=== PATIENT | male | born 1940 | race Caucasian/White ===

== ENCOUNTER → 2017-04-21 | Outpatient (CLI) | payer OTHER, MEDICARE ==
[~2017-04-21] MED LIST: LORTAB 5 MG/5001 TA1 PO; NOHOMEMEDICATIONS; TAMSULOSIN HCL0.4 M1 PO
== END ==
LOC: RAD 14:18
DX: M79.641 Pain in right hand (principal); S63.601A Unspecified sprain of right thumb, initial encounter; X58.XXXA Exposure to other specified factors, initial encounter; Y93.89 Activity, other specified; Y92.89 Other specified places as the place of occurrence of the external cause; Y99.8 Other external cause status

== ENCOUNTER → 2018-08-18 | Outpatient (CLI) | payer OTHER, MEDICARE | LOC: ULTRA 17:18 | DX: M79.89 Other specified soft tissue disorders (principal); M79.661 Pain in right lower leg ==

== ENCOUNTER → 2019-06-02 | Outpatient (CLI) | payer OTHER, MEDICARE | LOC: SJCVC 10:57 → SJCVCIMAG 10:57 | DX: I73.9 Peripheral vascular disease, unspecified (principal) ==

== ENCOUNTER 2019-06-06 11:27 | Observation (INO) | payer OTHER, MEDICARE ==
[~2019-06-06] VITALS: Ht 180.3 cm; Wt 83.6 kg
[2019-06-06 12:07] VITALS: BP 156/86
[2019-06-06] MEDS ORDERED: LO-DOSE ASPIRIN81 M1 PO (12:18)
[2019-06-06] MEDS ORDERED: ZIAC 5-6.25 MG1 EACH PO ×2 (12:18→16:21)
[2019-06-06] MEDS ORDERED: LIVALO4 MG PO (12:19)
[2019-06-06] MEDS ORDERED: XARELTO20 MG PO (12:19)
[2019-06-06 13:03] LABS: HEMATOCRIT 46.2 % (42.0-52.0); HEMOGLOBIN 15.6 gm/dL (14.0-18.0); MCH 31.8 pg (26.0-34.0); MCHC 33.7 g/dL (28.0-37.0); MCV 94.3 fL (80.0-100.0); RBC 4.9 mil/uL (4.50-6.00); RDW 13.9 % (10.5-14.5); WBC 8.1 thou/uL (4.0-11.0)
[2019-06-06 13:13] LABS: CREATININE 1.2 mg/dL (0.7-1.3); POTASSIUM 4.2 mmol/L (3.5-5.1)
[2019-06-06] MEDS ORDERED: CRESTOR20 MG PO ×2 (16:19→16:21)
[2019-06-06] MEDS ORDERED: XARELTO15 MG PO ×2 (16:19→16:21)
[2019-06-06 16:20] VITALS: BP 143/87
[2019-06-06 16:35] VITALS: BP 151/80
[2019-06-06 16:50] VITALS: BP 145/96
[2019-06-06 17:05] VITALS: BP 142/97
[2019-06-06 18:05] VITALS: BP 139/85
--- NOTE | 2019-06-06 18:11 | NUR ---
PT CAME TO UNIT APPROX 1615 FOR OBS POST PROCEDURE. RIGHT GROIN POST CATH SITE C/D/I. NO HEMATOMA. IVF RAN PER ORDER UNTIL BEDREST ORDER COMPLETE. PT REFUSED FOOD. UP WITH STEADY GAIT AT THIS TIME. SR ON FISH BAILER. DENIES PAIN, SOA AND DIZZINESS. VSS. IV OUT, TELE BOX OFF. PT TO BE ESCORTED OUT [facility].
--- NOTE | 2019-06-06 18:13 | NUR ---
DISCHARGE INSTRUCTIONS REVIEWED ALONG WITH MESSAGE FOR NEW MED ORDERS AND FOLLOW UP APPT. PT DENIED QUESTIONS AND CONCERNS REGARDING MEDS AND F/U.
== END 2019-06-06 19:16 | disposition home or self-care (01) ==
LOC: CATH 11:27 → 2N 16:26
PROVIDERS: ADMIT Nuclear Medicine Nuclear Cardiology
DX: I73.9 Peripheral vascular disease, unspecified (principal); I70.212 Atherosclerosis of native arteries of extremities with intermittent claudication, left leg; I10 Essential (primary) hypertension; I25.10 Atherosclerotic heart disease of native coronary artery without angina pectoris

== ENCOUNTER → 2019-07-17 | Outpatient (CLI) | payer OTHER, MEDICARE ==
[~2019-07-17] MED LIST changes: +CRESTOR20 MG PO; +LIVALO4 MG PO; +LO-DOSE ASPIRIN81 M1 PO; +XARELTO15 MG PO; +XARELTO20 MG PO; +ZIAC 5-6.25 MG1 EACH PO
== END ==
LOC: SJCVCIMAG 07:22
PROVIDERS: ATTEND Internal Medicine Cardiovascular Disease
DX: I65.23 Occlusion and stenosis of bilateral carotid arteries (principal); I70.203 Unspecified atherosclerosis of native arteries of extremities, bilateral legs; E78.00 Pure hypercholesterolemia, unspecified; I10 Essential (primary) hypertension; R00.1 Bradycardia, unspecified; I45.10 Unspecified right bundle-branch block; Z79.899 Other long term (current) drug therapy

== ENCOUNTER → 2020-01-09 | Outpatient (CLI) | payer OTHER, MEDICARE | LOC: SJCVC 12:18 | PROVIDERS: ATTEND Internal Medicine Cardiovascular Disease | DX: I10 Essential (primary) hypertension (principal); I45.10 Unspecified right bundle-branch block; I73.9 Peripheral vascular disease, unspecified; E78.00 Pure hypercholesterolemia, unspecified; I65.23 Occlusion and stenosis of bilateral carotid arteries; Z79.82 Long term (current) use of aspirin; Z79.899 Other long term (current) drug therapy ==

== ENCOUNTER → 2020-06-25 | Outpatient (CLI) | payer OTHER, MEDICARE | LOC: SJCVCIMAG 08:29 | PROVIDERS: ATTEND Nuclear Medicine Nuclear Cardiology | DX: I70.203 Unspecified atherosclerosis of native arteries of extremities, bilateral legs (principal); I45.10 Unspecified right bundle-branch block; E78.5 Hyperlipidemia, unspecified; I77.9 Disorder of arteries and arterioles, unspecified; I10 Essential (primary) hypertension; E78.00 Pure hypercholesterolemia, unspecified; Z72.89 Other problems related to lifestyle; Z79.82 Long term (current) use of aspirin; Z79.899 Other long term (current) drug therapy ==

== ENCOUNTER → 2020-12-25 | Outpatient (CLI) | payer OTHER | LOC: CAT 13:15 | PROVIDERS: ATTEND Internal Medicine Cardiovascular Disease | DX: Z13.6 Encounter for screening for cardiovascular disorders (principal); E78.00 Pure hypercholesterolemia, unspecified; I25.10 Atherosclerotic heart disease of native coronary artery without angina pectoris ==

== ENCOUNTER → 2020-12-25 | Outpatient (CLI) | payer OTHER, MEDICARE | LOC: SJCVCIMAG 09:52 → SJCVC 09:52 → SJCVCIMAG 10:18 | PROVIDERS: ATTEND Nuclear Medicine Nuclear Cardiology | DX: R94.31 Abnormal electrocardiogram [ECG] [EKG] (principal); I70.203 Unspecified atherosclerosis of native arteries of extremities, bilateral legs; I65.23 Occlusion and stenosis of bilateral carotid arteries; I45.10 Unspecified right bundle-branch block; I10 Essential (primary) hypertension; I73.9 Peripheral vascular disease, unspecified; E78.00 Pure hypercholesterolemia, unspecified; E78.5 Hyperlipidemia, unspecified; I77.9 Disorder of arteries and arterioles, unspecified; Z72.89 Other problems related to lifestyle; Z79.82 Long term (current) use of aspirin; Z79.899 Other long term (current) drug therapy ==